=== PATIENT | male | born 1990 | race Two or more races ===

== ENCOUNTER 2022-11-08 14:32 | Emergency (ER) | payer OTHER, SELFPAY ==
[2022-11-08 14:58] VITALS: BP 129/78; PULSE 74; RESP 16; TEMP 36.3; O2SAT 99; BMI 29.8
--- NOTE | 2022-11-08 17:14 | ED.BACK ---
HPI - Back Pain/Injury General Date Seen: 11/08/22 Chief Complaint: Back Injury/Pain Stated Complaint: work comp- pain in hips Time Seen by Provider: 11/08/22 16:17 History of Present Illness HPI Narrative: History is limited by language barrier. An [employer] Turkmen-Persian grievance and appeals coordinator was used to obtain history. This is a pleasant 31-year-old male. He has no long-term medical conditions or previous back problems. He presents to the ER today with a colleague from his work at [employer] on [employer]. He apparently injured his low back or right hip about 5 days ago, last . He was apparently at work when he slipped and twisted. He did not actually fall but it sounds like he slipped and injured his back and hip. He did not report the injury on the day it occurred. It sounds like had fairly significant pain the following day, last Monday and he reported the injury yesterday at work. He has been having pain affecting the lower portion of his right lumbar paraspinous muscle and across the posterior pelvis. He the pain does not really radiate down into his hip or down into his thigh or leg. No associated numbness or tingling or weakness in the leg. He had quite a bit of pain for the 1st day or 2 after the accident but it is getting slowly better. He feels like his legs are a little bit on even now when he walks but he is not having any trouble walking. No bowel or bladder disturbance. No fever. He has no previous back or hip injuries. 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 Related Data Home Medications Medication Instructions Recorded Confirmed No Known Home Medications 11/08/22 11/08/22 Allergies Allergy/AdvReac Type Severity Reaction Status Date / Time No Known Drug Allergies Allergy Verified 11/08/22 15:19 PFSH PFSH Social History Smoking Status: Never smoker How often do you have a drink containing alcohol: monthly or less AUDIT-C Alcohol total score: 1 Non-prescribed substance use: denies use service: No Exam Narrative: Exam Narrative: Constitutional: Appears well-developed and well-nourished. Alert. Conversant using the grievance and appeals coordinator Non toxic. HENT: Head: Atraumatic. Nose: Nose normal. Mouth/Throat: Oral mucosa is clear and moist. no trismus. Pharynx normal. Tonsils symmetric. No tonsillar enlargement, erythema, or exudate. Eyes: Conjunctivae normal. EOM normal. Pupils equal, round, and reactive to light. No scleral icterus. Neck: Normal range of motion. Neck supple. No tracheal deviation present. Cardiovascular: Normal rate, regular rhythm. No gallop. No friction rub. No murmur heard. Symmetric radial artery pulses Pulmonary/Chest: Effort normal. No stridor. No respiratory distress. No wheezes. No rales. No rhonchi . No tenderness. Abdominal: Soft. Bowel sounds normal. No distension. No mass. No tenderness. No rebound. No guarding. Musculoskeletal: RUE: Normal range of motion. No tenderness. No deformity LUE: Normal range of motion. No tenderness. No deformity RLE: Normal range of motion. No edema. No tenderness. No deformity LLE: Normal range of motion. No edema. No tenderness. No deformity Inspection of low back is normal. He endorses pain in the lower right lumbar paraspinous muscles and down toward the right SI joint. He does not have any tenderness there. No midline step-off. No redness. No rash or shingles. No bruising. Pelvis is stable. Right hip, greater trochanter is normal. Normal range of motion of the right hip. No leg length discrepancy. He is able to ambulate normally without any footdrop or antalgic gait. Neurological: Alert and oriented to person, place, and time. Normal strength. CN II-VII intact. No sensory deficit. GCS eye subscore is 4. GCS verbal subscore is 5. GCS motor subscore is 6. Normal coordination Sensory: Normal light touch sensation bilaterally on the anteromedial thigh (L3), medial malleolus (L4), dorsal first web space (L5), lateral malleolus (S1). Strength: 5/5 strength hip flexors (L3) on the right and left 5/5 strength in the quadriceps (L4) on the right and left 5/5 strength in the tibialis anterior 5/5 strength in the EHL (L5) on the right and left 5/5 strength in the gastrocnemius (S1) on the right and left 5/5 strength in the hamstring on the right and left DTRs: symmetric in the patella (2/4) Negative straight leg raise bilaterally. Skin: Skin is warm and dry. No rash noted. No pallor. Normal capillary refill. Psychiatric: Normal mood. Normal affect. Const: Vital Signs, click to edit/add: Vital Signs - 24 hr 11/08/22 14:58 Temperature 97.3 F L Pulse Rate [Right Pulse Oximeter] 74 Respiratory Rate 16 Blood Pressure [Ri ght Upper Arm] 129/78 Pulse Oximetry 99 Oxygen Delivery Me thod Room Air Course Vital Signs Vital signs: Initial Vital Signs Temperature 97.3 F L 11/08/22 14:58 Temperature Source Temporal Artery Scan 11/08/22 14:58 Pulse Rate 74 11/08/22 14:58 Pulse Rhythm Regular 11/08/22 14:58 Respiratory Rate 16 11/08/22 14:58 Blood Pressure 129/78 11/08/22 14:58 Blood Pressure Mean 95 11/08/22 14:58 Blood Pressure Position Sitting 11/08/22 14:58 Pulse Oximetry 99 11/08/22 14:58 Oxygen Delivery Method Room Air 11/08/22 14:58 Vital Signs Temperature 97.3 F L 11/08/22 14:58 Pulse Rate 74 11/08/22 14:58 Respiratory Rate 16 11/08/22 14:58 Blood Pressure 129/78 11/08/22 14:58 Pulse Oximetry 99 11/08/22 14:58 Oxygen Delivery Method Room Air 11/08/22 14:58 Temperature 97.3 F L 11/08/22 14:58 Pulse Rate 74 11/08/22 14:58 Respiratory Rate 16 11/08/22 14:58 Blood Pressure 129/78 11/08/22 14:58 Pulse Oximetry 99 11/08/22 14:58 Oxygen Delivery Method Room Air 11/08/22 14:58 MDM - Back Pain/Injury MDM Narrative Medical decision making narrative: This patient presented with back pain. This is a work related injury that occurred last . Broad differential considered. The patient did not sustain any blunt trauma, therefore x-rays are not necessary due to the low likelihood of fracture or subluxation. No red flag symptoms to suggest CT and/or MRI is indicated at this point. The patient has not had a fever, saddle/perineal anesthesia, bilateral foot numbness, or bowel or bladder dysfunction. There is no clinical evidence of cauda equina syndrome, discitis, spinal/epidural space hematoma or epidural abscess. The neurological exam is normal and the patient's symptoms seem consistent with a musculoskeletal issues and significant muscle spasm. Pain has improved with interventions prior to arrival.. The patient will be discharged with pain medications (Aleve or other NSAIDs) to use as directed. Ice or heat to the back and stretching exercises. No heavy lifting, bending or twisting. Return if increasing pain, numbness, weakness, or bowel or bladder dysfunction. The patient was advised to schedule follow-up with their primary doctor within 2-3 days to re-assess symptoms. Return precautions reviewed and questions answered. Discharge Plan Discharge Clinical Impression: Strain of lumbar region Patient Disposition: Home, Self-Care Condition: Stable Instructions: Back Pain (ED), Lower Back Exercises (ED) Additional Instructions: Please come back to the ER or see your doctor right away if you have worsening pain, numbness or weakness down her leg, or if your symptoms are not resolved after 3 days. Use Aleve as needed to help decrease your pain for the next 2-3 days. Stick to ?light duty as per your employer's instruction sheet. Activity Level: Light activity Diet Detail: urdu Prescriptions: No Action No Known Home Medications Stand Alone Forms: [facility] Info Instructions
== END 2022-11-08 17:31 | disposition home or self-care (01) ==
LOC: ED 17:29
PROVIDERS: Emergency Provider Emergency Medicine
DX: S39.012A Strain of muscle, fascia and tendon of lower back, initial encounter (principal); X58.XXXA Exposure to other specified factors, initial encounter; Y99.0 Civilian activity done for income or pay
CPT/HCPCS: 99282; 99283

== ENCOUNTER 2023-03-21 17:33 | Outpatient (CLI) | payer OTHER, SELFPAY ==
[2023-03-22 00:23] LABS: Chlamydia DNA Amplified* NOT DETECTED (No Detected); GC DNA Amplified* NOT DETECTED (No Detected)
== END 2023-03-21 17:34 | disposition home or self-care (01) ==
PROVIDERS: Visit Provider Nurse Practitioner
DX: R30.9 Painful micturition, unspecified (principal)
CPT/HCPCS: 87086; 87491; 87591

== ENCOUNTER 2023-03-28 10:40 | Emergency (ER) | payer OTHER, SELFPAY ==
[2023-03-28 11:08] VITALS: BP 136/84; PULSE 86; RESP 18; TEMP 37; O2SAT 99; BMI 25.5
--- NOTE | 2023-03-28 11:36 | ED.GENADULT ---
HPI - General Adult General Chief complaint: Back Injury/Pain Stated complaint: Back pain, dizziness Time Seen by Provider: 03/28/23 11:24 History of Present Illness HPI narrative: This 32-year-old male comes in reporting low back pain and flank pain. He states that he has a history of kidney stone about a year ago. 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 He does not describe any particular injury event but does have pain with doing his regular activities of work. Symptoms started about 9 days ago. He does report some pain also with voiding urine and has had some nausea. He reports pain in the left flank but also across his lower back. He does not have any pain radiating down into either leg. Related Data Previous Rx's Medication Instructions Recorded tamsulosin 0.4 mg capsule 0.4 mg PO QDAY 14 days #14 caps 03/21/23 ketorolac 10 mg tablet 10 mg PO Q8H 5 days #15 tabs 03/28/23 ondansetron HCl 4 mg tablet 4 mg PO Q6H #20 tabs 03/28/23 Allergies Allergy/AdvReac Type Severity Reaction Status Date / Time No Known Drug Allergies Allergy Verified 03/28/23 11:19 Review of Systems Status of ROS: Reports: 10 or more systems reviewed and unremarkable except as noted in History and below Narrative: Constitutional: No fevers, no weight gain or loss. Eyes: No discharge. No vision changes. HENT: No congestion, no sore throat, no ear pain. Cardiovascular: No chest pain, no palpitations. Respiratory: No shortness of breath, no wheezes, no cough. Gastrointestinal: Lower abdominal pain, no vomiting, no diarrhea. He reports some nausea symptoms. Genitourinary: Pain when voiding urine. Musculoskeletal: Normal range of motion. Low back pain as described above. Skin: No rashes, no pruritis. Neurological: No dizziness, weakness, sensory change, speech change. Endo/Heme/Allergies: No bruising or bleeding. No polydipsia. Pysch: no suicidality, no anxiety, no insomnia. All other systems reviewed and are negative. PFSH PFS Social History Smoking Status: Former smoker Do you use any of these nicotine containing products: None Second hand tobacco smoke exposure: No How often do you have a drink containing alcohol: never AUDIT-C Alcohol total score: 0 Non-prescribed substance use: denies use service: No Exam Narrative: Exam Narrative: Constitutional: Well-developed, well-nourished, no acute distress. HEENT: Normocephalic, atraumatic. Neck: Normal range of motion. Nontender. Supple. Heart: Regular. No murmurs. Normal rate. Intact distal pulses. Lungs: Clear to auscultation. No chest discomfort. No wheezes, rhonchi, or rales. Abdomen: Normal bowel sounds. Nontender. No rebound tenderness. Genitalia: Deferred. Back: No midline tenderness. Normal range of motion. Extremities: Normal range of motion. No injury. Skin: Intact. No rash. Warm. No erythema or pallor. Neurologic: No altered sensation. No weakness. Alert and oriented. Psychiatric: No suicidality. No anxiety or depression. No insomnia. Nursing notes and vitals signs are reviewed. Const: Vital Signs, click to edit/add: Vital Signs - 24 hr 03/28/23 11:08 Temperature 98.6 F Pulse Rate [Pulse Oximeter] 86 Respiratory Rate 18 Blood Pressure [Ri ght Upper Arm] 136/84 Pulse Oximetry 99 Oxygen Delivery Me thod Room Air Course Vital Signs Vital signs: Initial Vital Signs Temperature 98.6 F 03/28/23 11:08 Temperature Source Temporal Artery Scan 03/28/23 11:08 Pulse Rate 86 03/28/23 11:08 Respiratory Rate 18 03/28/23 11:08 Blood Pressure 136/84 03/28/23 11:08 Blood Pressure Mean 101 03/28/23 11:08 Blood Pressure Position Sitting 03/28/23 11:08 Pulse Oximetry 99 03/28/23 11:08 Oxygen Delivery Method Room Air 03/28/23 11:08 Vital Signs Temperature 98.6 F 03/28/23 11:08 Pulse Rate 86 03/28/23 11:08 Respiratory Rate 18 03/28/23 11:08 Blood Pressure 136/84 03/28/23 11:08 Pulse Oximetry 99 03/28/23 11:08 Oxygen Delivery Method Room Air 03/28/23 11:08 Temperature 98.6 F 03/28/23 11:08 Pulse Rate 86 03/28/23 11:08 Respiratory Rate 18 03/28/23 11:08 Blood Pressure 136/84 03/28/23 11:08 Pulse Oximetry 99 03/28/23 11:08 Oxygen Delivery Method Room Air 03/28/23 11:08 Medical Decision Making MDM Narrative Medical decision making narrative: This 32-year-old male comes in with low back pain and flank pain. He has a history of kidney stones but also states that he is doing heavy lifting at work. He is concerned about workman's compensation to cover expenses for this visit. He does report some dysuria symptoms. I did recommend CT imaging but the patient declined this seeing that workman's compensation may not cover this expense. A urinalysis is obtained and does show evidence of microscopic hematuria but no sign of infection. The patient's symptoms are suspicious for kidney stone as he has flank pain and nausea with symptoms similar to his previous kidney stone about a year ago. He also likely has musculoskeletal pain as he does heavy lifting at work. The patient declined any further studies. He received prescription for Toradol and Zofran. I also provided a return to work note. Lab Data Labs: Lab Results 03/28/23 Range/Units 11:35 Urine Color Yellow (Yellow) Urine Appearance Slightly Cloudy A (Clear) Urine pH 5.5 (5.0-8.5) Ur Specific [place] >= 1.030 (1.000-1.030) Urine Protein 2+ A (Negative) Urine Glucose (UA) Negative (Negative) Urine Ketones Trace A (Negative) Urine Blood 3+ A (Negative) Urine Nitrite Negative (Negative) Urine Bilirubin Negative (Negative) Urine Urobilinogen 0.2 (0.2-1.0) Ur Leukocyte Esterase Negative (Negative) Urine RBC 25-50 A (0-2) Urine WBC 0-2 (0-5) Ur Squamous Epith Cells None (None-Few) Amorphous Sediment Few A (None) Urine Bacteria None (None) Discharge Plan Discharge Clinical Impression: Strain of lumbar region, Hematuria Patient Disposition: Home, Self-Care Condition: Stable Additional Instructions: Take medication as prescribed. Follow up with MD or return if worsening. Follow-up with primary physician to recheck urine. Prescriptions: New ondansetron HCl 4 mg tablet 4 mg PO Q6H Qty: 20 0RF ketorolac 10 mg tablet 10 mg PO Q8H 5 Days Qty: 15 0RF No Action tamsulosin 0.4 mg capsule 0.4 mg PO QDAY 14 Days Qty: 14 0RF Follow Up/Referrals: Provider,Not a Local [Primary Care Provider] - Stand Alone Forms: [employer] Info Instructions
[2023-03-28 12:33] LABS: Appearance Urine Slightly Cloudy (Clear); Bilirubin Urine Negative (Negative); Blood Urine 3+ (Negative); Color Urine Yellow (Yellow); Glucose Urine Negative (Negative); Ketones Urine Trace (Negative); Leukocyte Esterase Urine Negative (Negative); Nitrite Urine Negative (Negative); Protein Urine 2+ (Negative); Specific Gravity Urine >= 1.030 (1.000-1.030); Urobilinogen Urine 0.2 (0.2-1.0); pH Urine 5.5 (5.0-8.5)
[2023-03-28 12:47] LABS: Amorphous Sediment Urine Few; RBC Urine 25-50 (0-2); WBC Urine 0-2 (0-5)
--- NOTE | 2023-03-28 13:25 | ED.NURSE ---
Patient discharged home with self. Discharge instructions reviewed and understood by patient with field operations technician present. All questions answered. Left via ambulatory.
== END 2023-03-28 13:25 | disposition home or self-care (01) ==
PROVIDERS: Emergency Provider Emergency Medicine Emergency Medical Services
DX: S39.012A Strain of muscle, fascia and tendon of lower back, initial encounter (principal); X50.0XXA Overexertion from strenuous movement or load, initial encounter; Y92.79 Other farm location as the place of occurrence of the external cause; Y99.0 Civilian activity done for income or pay; R31.9 Hematuria, unspecified
CPT/HCPCS: 81001; 99284

== ENCOUNTER 2024-01-15 15:43 | Outpatient (CLI) | payer OTHER, SELFPAY ==
--- OUTSIDE RECORDS SUMMARY | 2024-01-15 15:48 | XMS_ITS | Continuity of Care Document ---
Author Organization [facility] Address [address] [place] [address] Assessment No assessment recorded. Plan of Treatment Reminders Order Date Submit Date Provider Last Modified By Organization Details Last Modified Time Details Appointments Establish ed patient 2023 03:20P M Kenya Ayoub MD Not available Not available Not available Establish ed patient 20 2023 04:20P M Kenya Ayoub MD Not available Not available Not available Lab None recorded. Referral None recorded. Procedures None recorded. Surgeries None recorded. Imaging CT, urogram 2023 024 [email or web address] Not available 01/11/2024 16:13:23 Medication Orders None recorded. Patient TargetsNo targets recorded. Patient InstructionsNo instructions recorded. Reason for Referral None Reported. Problems Name Problem SNOMED Code Status Onset Date Resolution Date Notes Provider Name and Address Organization Details Recorded Time Persisten t microscop ic hematuria 985974346 Active 2023 Urgent care 03/21/2023, ER 03/28/2023 CT scan 04/14/2023 - negative for renal calculus, bladder/pr ostate normal Evaluation in [place] 2022 - kidney stones DEVANTE DIETZ MD [address] [facility] [place], [address], [facility] [employer] 4 20:54:22 Dysuria 04111024 Active 2023 Urine cultures negative - improved with 3 week course of Bactrim in 07/2023 for ? chronic prostatiti s DEVANTE DIETZ MD [address] [facility] [place], [address], [employer] 4 21:01:30 Problem Notes None recorded. Medical Equipment None Reported. Medications Name Sig Start Date Stop Date Status Note LastModified by Organization Details LastModified Time methocarbam ol 500 mg tablet TAKE TWO TABLETS BY MOUTH AT BEDTIME FOR 2 WEEKS active Not Available Not Available No t Available ondansetron HCl 4 mg tablet TAKE ONE TABLET BY MOUTH EVERY SIX HOURS 07/30 completed Not Available Not Available Not Available naproxen 250 mg tablet TAKE TWO TABLETS BY MOUTH EVERY 12 HOURS FOR THE NEXT 5 DAYS. AFTER THAT, TAKE ONE TABLET BY MOUTH EVERY 12 HOURS NEEDED. active Not Available Not Available No t Available sulfamethox azole 800 mg-trimetho prim 160 mg tablet TAKE 1 TABLET EVERY 12 HOURS BY ORAL ROUTE FOR 21 DAYS. 12/18 completed Not Available Not Available Not Available ketorolac 10 mg tablet TAKE ONE TABLET BY MOUTH EVERY EIGHT HOURS FOR 5 DAYS 07/30 completed Not Available Not Available Not Available amoxicillin 875 mg tablet TAKE ONE TABLET BY MOUTH EVERY 12 HOURS FOR 7 DAYS 07/30 completed Not Available Not Available Not Available tamsulosin 0.4 mg capsule TAKE ONE CAPSULE BY EVERY DAY FOR 14 DAYS 07/30 completed Not Available Not Available Not Available levofloxaci n 500 mg tablet TAKE ONE TABLET BY MOUTH EVERY 24 HOURS FOR 10 DAYS 07/30 completed Not Available Not Available Not Available methylpredn isolone 4 mg tablets in a dose pack TAKE BY MOUTH DIRECTED ON PACKAGE active Not Available Not Available No t Available naproxen 500 mg tablet TAKE ONE TABLET BY MOUTH TWICE A DAY active Not Available Not Available No t Available Vitals Date Recorded Body weight Oxygen saturation Oxygen saturation in Arterial blood by Pulse oximetry Respiratory rate Systolic blood pressure Diastolic blood pressure Provider Name and Address Organization Details Last Updated DateTime 4 30899.7 2 g 100 % 100 % 78 /min 135 mm[Hg] 76 mm[Hg] ROLF Son [address] [place], [address], [place] - [facility] 4 11:57:48 Social History None recorded. Functional Status None recorded. Mental Status None recorded. Family History Nothing Reported. Medical History No medical history recorded. Past Encounters Encounter ID Performer Location Encounter Start Date Encounter Closed Date Diagnosis/Indication Diagnosis SNOMED-CT Code Diagnosis ICD10 Code [id number] [facility] [address] [facility] [place] [address] 01/08/2024 11:27:37 01/08/2024 13:04:20 Persistent microscopic hematuria 527079888 R31.29 Chronic prostatitis 1989 5009 N41.1 Health Concerns Section Related Observation LastModified by Organization Detai ls LastModified Time None Recorded Concern Status LastModified by Organization Details LastModified Time None Recorded Payers Encounter Date Sequence Insurance Name Policy Number Policy Fraga Covered Member ID Fraga Member ID Guarantor Name 01/08/2024 SLIDING FEE SCHEDULE - DISCOUNT Khalif Peters Notes Date Note Type Note Provider Name and Address Organization Details Recorded Time 01/08/2024 text/html HPI Notes: Pt he re today following up on his urinary sxs Pt last seen by me in August -- p tomas see those previous notes for more detailed history At that time was treated for chronic prostatitis with 3 week course of Bactrim per urology recommendation (consulted through [facility]) given persistent urinary sxs (urgency, dysuria). His symptoms improved but stated about 15-20 days ago, they returned. Has persistent dysuria, urgency. Also has occasional left sided low back ache and feels urine is dark in color. Had normal CT scan of abdomen/pelvis as well as normal renal function. Has had persistent microscopic hematuria and proteinuria. Pt was referred to urology specialist ( Dr Kenya Ayoub). However he missed his appointment on 12/27. Given the hematuria and proteinuria, Dr Ayoub recommended CT urogram. If not clear cause identified, he may need cystoscopy . Does have a visit scheduled with Dr. Ayoub for mid January (01/31). ROLF Son [address] [place], [address], [facility] - [facility] 01/08/2024 13:12:28
--- OUTSIDE RECORDS SUMMARY | 2024-01-15 15:48 | XMS_ITS | Data Portability ---
Author Organization [facility] [email or web address] [facility] DOMITILAISAIAH OFFICE Address [address] [place] [address] [place] [phone] Assessment Encounter Date Assessment Date Assessment LastModified by Organization Details LastModified Time 04/14/2023 04/14/2023 - full complement of labs to evaluate symptoms (possibly DM2) - CT of abdomen given history of stones and persistent symptoms - plan pending results [email or web address] Not available 04/14/2023 13:34:10 Plan of Treatment Reminders Order Date Submit Date Provider Last Modified By Organization Details Last Modified Time Details Appointments Establish ed patient 20 2023 03:20P M Kenya Ayoub MD Not available Not available Not available Establish ed patient 20 2023 04:20P M Kenya Ayoub MD Not available Not available Not available Lab H pylori Ag, stool 2023 024 JOSE Not available 05/09/2023 21:39:47 CMP, serum or plasma 2023 024 JOSE Not available 05/09/2023 21:39:47 CBC w/ auto diff 2023 024 JOSE Not available 05/09/2023 21:39:47 TSH, serum or plasma 2023 024 JOSE Not available 05/09/2023 21:44:38 HbA1c (hemoglob in A1c), blood 2023 024 JOSE Not available 05/08/2023 11:54:32 CMP, serum or plasma 2023 024 JOSE Not available 08/01/2023 14:14:47 PSA, total, serum or plasma 2023 024 JOSE Not available 08/02/2023 11:52:37 urinalysi s, complete 2023 JOSE Not available 08/02/2023 11:49:08 culture, urine 2023 024 JOSE Not available 08/02/2023 11:13:28 Referral None recorded. Procedures None recorded. Surgeries None recorded. Imaging CT, abdomen + pelvis, w/o contrast 2023 024 JOSE Not available 05/09/2023 21:45:51 CT, urogram 2023 [email or web address] Not available 01/11/2024 16:13:23 Medication Orders naproxen 500 mg tablet [address], [address], 08/21/2023 13:12:14 Patient TargetsNo targets recorded. Patient InstructionsNo instructions recorded. Reason for Referral None Reported. Results Created Date Observation Date Name Description Value Unit Range Abnormal Flag Note LastModifiedBy Organization Detail LastModifiedTime 04/14/19 24 04/14/2023 TSH, serum or plasm a TSH 0.958 Not Available Not Availa ble 05/09/2023 21:43:15 04/14/19 24 04/14/2023 H pylor i Ag, stool hemoglobin A1C 5.3 Not Available Not Available 04/21 21:39:47 04/14/19 24 04/14/2023 H pylor i Ag, stool creatinine 0.9 Not Available Not Velia ilable 05/09/2023 21:39:47 04/14/19 24 04/14/2023 H pylor i Ag, stool ALT 26 Not Available Not Availa ble 05/09/2023 21:39:47 04/14/19 24 04/14/2023 H pylor i Ag, stool WBC 6.97 Not Available Not Availa ble 05/09/2023 21:39:47 04/14/19 24 04/14/2023 H pylor i Ag, stool HGB 14.0 Not Available Not Availa ble 05/09/2023 21:39:47 04/14/19 24 04/14/2023 H pylor i Ag, stool plt 414 Not Available Not Availa ble 05/09/2023 21:39:47 04/14/19 24 04/14/2023 CBC w/ auto diff hemoglobin A1C 5.3 Not Available Not Available 04/21 21:39:47 04/14/19 24 04/14/2023 CBC w/ auto diff creatinine 0.9 Not Available Not Velia ilable 05/09/2023 21:39:47 04/14/19 24 04/14/2023 CBC w/ auto diff ALT 26 Not Available Not Availa ble 05/09/2023 21:39:47 04/14/19 24 04/14/2023 CBC w/ auto diff WBC 6.97 Not Available Not Availa ble 05/09/2023 21:39:47 04/14/19 24 04/14/2023 CBC w/ auto diff HGB 14.0 Not Available Not Availa ble 05/09/2023 21:39:47 04/14/19 24 04/14/2023 CBC w/ auto diff plt 414 Not Available Not Availa ble 05/09/2023 21:39:47 04/14/19 24 04/14/2023 CMP, serum or plasm a hemoglobin A1C 5.3 Not Available Not Available 04/21 21:39:47 04/14/19 24 04/14/2023 CMP, serum or plasm a creatinine 0.9 Not Available Not Velia ilable 05/09/2023 21:39:47 04/14/19 24 04/14/2023 CMP, serum or plasm a ALT 26 Not Available Not Availa ble 05/09/2023 21:39:47 04/14/19 24 04/14/2023 CMP, serum or plasm a WBC 6.97 Not Available Not Availa ble 05/09/2023 21:39:47 04/14/19 24 04/14/2023 CMP, serum or plasm a HGB 14.0 Not Available Not Availa ble 05/09/2023 21:39:47 04/14/19 24 04/14/2023 CMP, serum or plasm a plt 414 Not Available Not Availa ble 05/09/2023 21:39:47 04/14/19 24 04/14/2023 HbA1c (hemo globi n A1c), blood hemoglobin A1C 5.3 Not Available Not Available 03/21 14:04:35 04/14/19 24 04/14/2023 HbA1c (hemo globi n A1c), blood creatinine 0.9 Not Available Not Velia ilable 04/14/2023 14:04:35 04/14/19 24 04/14/2023 HbA1c (hemo globi n A1c), blood ALT 26 Not Available Not Availa ble 04/14/2023 14:04:35 04/14/19 24 04/14/2023 HbA1c (hemo globi n A1c), blood WBC 6.97 Not Available Not Availa ble 04/14/2023 14:04:35 04/14/19 24 04/14/2023 HbA1c (hemo globi n A1c), blood HGB 14.0 Not Available Not Availa ble 04/14/2023 14:04:35 04/14/19 24 04/14/2023 HbA1c (hemo globi n A1c), blood plt 414 Not Available Not Availa ble 04/14/2023 14:04:35 08/01/19 24 08/01/2023 CMP, serum or plasm a creatinine 1.2 Not Available Not Velia ilable 08/01/2023 14:11:46 08/01/19 24 08/01/2023 CMP, serum or plasm a ALT 37 Not Available Not Availa ble 08/01/2023 14:11:46 08/01/19 24 08/01/2023 PSA, total , serum or plasm a creatinine 1.2 Not Available Not Velia ilable 08/02/2023 11:52:37 08/01/19 24 08/01/2023 PSA, total , serum or plasm a ALT 37 Not Available Not Availa ble 08/02/2023 11:52:37 12/27/19 24 12/27/2023 CMP, serum or plasm a creatinine Not Available Not Velia ilable 12/30/2023 11:06:49 05/09/19 24 04/14/2023 CT, abdom en + pelvi s, w/o contr ast No observ ation record ed. [email or web address] Not Available 2023 15:31:24 Result Notes None recorded. Problems Name Problem SNOMED Code Status Onset Date Resolution Date Notes Provider Name and Address Organization Details Recorded Time Persisten t microscop ic hematuria 278134830 Active 2023 Urgent care 03/21/2023, ER 03/28/2023 CT scan 04/14/2023 - negative for renal calculus, bladder/pr ostate normal Evaluation in [place] 2022 - kidney stones DEVANTE DIETZ MD [address] [place], [address], [facility] [employer] 20:54:22 Dysuria 45975717 Active 2023 Urine cultures negative - improved with 3 week course of Bactrim in 07/2023 for ? chronic prostatiti s DEVANTE DIETZ MD [address] [place], [address], [facility] [employer] 21:01:30 Problem Notes None recorded. Procedures Surgical History None recorded. Imaging Results Imaging Date Name Status LastModified by Organiz ation Details LastModified Time 04/14/2023 CT, abdomen + pelvis, w/o contrast completed [email or web address] Information not available 06/01/2023 15:31:24 Procedure Notes None recorded. Medical Equipment None Reported. [...] No t Available Vitals Date Recorded Body height Body mass index (BMI) Body weight Respiratory rate Body temperature Oxygen saturation Oxygen saturation in Arterial blood by Pulse oximetry Heart rate Systolic blood pressure Diastolic blood pressure Provider Name and Address Organization Details Last Updated DateTime 4 167.64 cm 27.8 kg/m2 43880.6 1 g 22 /min 97.2 [degF] 99 % 99 % 73 /min 128 mm[Hg] 78 mm[Hg] Henrietta Ham [facility] [employer] 4 10:40:57 Date Recorded Body weight Oxygen saturation Oxygen saturation in Arterial blood by Pulse oximetry Heart rate Systolic blood pressure Diastolic blood pressure Provider Name and Address Organization Details Last Updated DateTime 4 28354.7 6 g 99 % 99 % 71 /min 132 mm[Hg] 83 mm[Hg] ROLF Son [address] [place], [address], [facility] [employer] 16:17:07 Date Recorded Body weight Body mass index (BMI) Body height Oxygen saturation Oxygen saturation in Arterial blood by Pulse oximetry Heart rate Systolic blood pressure Diastolic blood pressure Provider Name and Address Organization Details Last Updated DateTime 4 14463.0 2 g 28.3 kg/m2 167.64 cm 98 % 98 % 80 /min 132 mm[Hg] 65 mm[Hg] ROLF Son [address] [place], [address], [facility] [employer] 11:28:32 Date Recorded Body weight Oxygen saturation Oxygen saturation in Arterial blood by Pulse oximetry Respiratory rate Systolic blood pressure Diastolic blood pressure Provider Name and Address Organization Details Last Updated DateTime 84497.7 2 g 100 % 100 % 78 /min 135 mm[Hg] 76 mm[Hg] ROLF Son [address] [place], [address], [place] [email or web address] 11:57:48 Social History None recorded. Functional Status None recorded. Mental Status None recorded. Family History Nothing Reported. Medical History No medical history recorded. Past Encounters Encounter ID Performer Location Encounter Start Date Encounter Closed Date Diagnosis/Indication Diagnosis SNOMED-CT Code Diagnosis ICD10 Code [id number] BRIANACHELSEY RAMIRES [facility] [place] [facility] [address] [place] [address] 04/14/2023 10:33:49 04/14/2023 11:10:22 Dizziness 126574285 R42 Headache 94994290 R51.9 Polyuria 36938722 R35.89 History of calculus of kidney 107716342 Z87.442 Nausea 101222628 R11.0 [id number] ROLF Son OFFICE [address] [place] [address] 07/31/2023 15:34:34 07/31/2023 16:48:54 Pain in testicle 45897110 N50.819 Dribbling of urine 26366 000 N39.43 Dysuria 11269931 R30.0 Microscopic hematuria 19 7277957 R31.29 [id number] ROLF Son OFF[facility] [address] [place] [address] 08/21/2023 11:04:32 08/21/2023 11:55:52 Headache 16115692 R51.9 Paresthesi a of lower extremity 671260125 R20.2 Pain in testicle 5464173 9 N50.819 Dysuria 21287076 R30.0 Microscopic hematuria 19 3424806 R31.29 [id number] ROLF Son OFFICE [address] [place] [address] 01/08/2024 11:27:37 01/08/2024 13:04:20 Persistent microscopic hematuria 362965755 R31.29 Chronic prostatitis 1989 5009 N41.1 Health Concerns Section Related Observation LastModified by Organization Detai ls LastModified Time None Recorded Concern Status LastModified by Organization Details LastModified Time None Recorded Advance Directives Directive None Recorded Payers Encounter Date Sequence Insurance Name Policy Number Policy Fraga Covered Member ID Fraga Member ID Guarantor Name 04/14/2023 SLIDING FEE SCHEDULE - DISCOUNT Khalif Peters 07/31/2023 SLIDING FEE SCHEDULE - DISCOUNT Khalif Peters 08/21/2023 SLIDING FEE SCHEDULE - DISCOUNT Khalif Peters 01/08/2024 SLIDING FEE SCHEDULE - DISCOUNT Khalif Peters Notes Date Note Type Note Provider Name and Address Organization Details Recorded Time 04/14/2023 text/html HPI Notes: Marvin goldberg is a new patient to the clinic; has not been feeling well for a few weeks. Starting around March 20, he started having dizziness (during the entire day, no alleviating or aggravating factors), intermittent L sided headache. + nausea in the morning. Seen in UC on 03/21/23 with BG of 129, rest of BMP wnl. Negative GC/Chlamydia, + hematuria. Seen in ED on 03/28 with similar flank pain symptoms, persistent hematuria and declined imaging at that visit. He was started on Flomax given history, still taking this. Notes chronic back back in thoracic region, primarily L sided. He was seen in [place] for symtpoms about 6 months ago and found to have kidney stones. Rest of labs reassuring at that time. and baby still in [place]. Patient is generally healthy, no surgeries. Only current medication is Flomax. + HTN and DM2 in family. BRIANA RAMIRES, [facility] [address] [place], [address], [facility] 05/30/2023 17:31:09 07/31/2023 text/html HPI Notes: Patie nt here today for evaluation of urinary and testicular sxs Pt seen here in March c a range of sxs; had normal CT of abdomen (this was ordered given + hx of renal stones). Other labwork ordered was also WNL Was ultiamtely treated for atypical sinusitis c Amoxicillin Subsequently treated with levofloxacin for dysuria (10 days) Sxs did not resolve Says travelled to . Was seen by urologist there. Treated with cocktail of meds including tamsulosin, ciprofloxacin, omeprazole Etoricoxib, ami First visit with this provider. Seen in March and sent for CT of abdomen in particular to evaluate for stones. Went to was having sxs given a cocktail of meds including tamsulosin, ciprofloxacin, omeprazole Etoricoxib, and amikacin. Reports this did not change his sxs He continues to have sxs that concerns him -- endorses pain in inguinal area and testicles. Also reports dribbling, low back pain , urinary frequency. Says urine is dark. Endorses dysuria that comes and goes. Denies hematuria, penile discharge, nocturia.. No problems with erection, ejaculation. Believes had negative gonorrhea test. Unsure about any testing for chlamydia but also believes this was negative. Denies fever, nausea, vomiting. Has had persistent microscopic hematuria. ROLF Son [address] [place], [address], [facility] 08/01/2023 13:29:21 08/21/2023 text/html HPI Notes: Pt he re today following up on his urinary sxs Please see previous OV note for more details Treated with 3 week course of Bactrim per urology recommendation (consulted through [employer]) Pt reports: improvement in the urinary urgency and dysuria. Says that during [place] is symptom free. However continues to notice occasional dysuria in evenings. Testicular and inguinal pain has resolved Urology referral was initiated: in process, has a meeting with a pediatric critical care nurse today to discuss options. Is feeling stress b/c concerned about kidney function. Explained his labs are not suggestive of renal insufficiency. He does have persistent microscopic blood in his urine as well as 2+ protein but had normal CMP and Ct scan of abd earlier this year. Pt also reporting headache since last visit. States has experienced this since last visit and it is constant. Pain is not severe. Has not taken anything for it. It is felt frontally and behind the left eye. No visual changes but notes occasional pulsations in the vision. Also reports occasional dizziness. Says GUSTAFSON gets worse as day progresses. He hasn't wanted to take anything b/c he was afraid of mixing meds. Has occasional nausea but it is not affiliated with the headache usually. Also reporting occasional paresthesias of the extremities. Comes and goes. Having left sided upper back pain with some arm movements, bending forward. ROLF Son [address] [place], [address], [facility] 08/21/2023 13:54:35 01/08/2024 text/html HPI Notes: Pt he re today following up on his urinary sxs Pt last seen by me in August -- p tomas see those previous notes for more detailed history At that time was treated for chronic prostatitis with 3 week course of Bactrim per urology recommendation (consulted through [employer]) given persistent urinary sxs (urgency, dysuria). [...] for mid January (01/31). ROLF Son [address] [place], [address], [facility] 01/08/2024 13:12:28
--- NOTE | 2024-01-15 16:00 | CRLHL7_ITS ---
For Patients: As a result of the Century Cures Act, medical imaging exams and procedure reports are released immediately into your electronic medical record. You may view this report before your referring provider. If you have questions, please contact your health care provider. INDICATION: Persistent microscopic hematuria for 1 year. Low back pain. Pain with urination. TECHNIQUE: CT of the abdomen and pelvis performed using the urogram protocol. 95 cc nonionic Isovue-370 administered. COMPARISON: Correlation is made with a noncontrast abdominal pelvic CT April 14, 2023. (Reportedly normal without stones). FINDINGS: Precontrast imaging is negative for urinary tract calculi. Calcified left erna pelvic phlebolith. Postcontrast imaging demonstrates normal kidneys, ureters, and urinary bladder. Clear included lung bases with mild respiratory motion artifact. The liver, spleen, pancreas, gallbladder, adrenal glands, abdominal aorta, iliac arteries, inferior vena cava, prostate gland, and seminal vesicles are normal. Normal small and large bowel. Normal appendix. No ascites or lymphadenopathy. Normal included skeleton. IMPRESSION: Negative CT of the abdomen and pelvis. No change other than technique. Please note that all CT scans at this facility use dose modulation, iterative reconstruction, and/or weight-based dosing when appropriate to reduce radiation dose to as low as reasonably achievable. Dictated by Yuan Suárez MD @ 01/16/2024 12:47:34 PM (Electronically Signed)
== END 2024-01-15 15:44 | disposition home or self-care (01) ==
LOC: CT 15:46
PROVIDERS: PCP Family Medicine; Visit Provider Nurse Practitioner Family
DX: R31.29 Other microscopic hematuria (principal); M54.50 Low back pain, unspecified
CPT/HCPCS: 74178; T1013; Q9967

== ENCOUNTER 2024-04-12 16:45 | Outpatient (RCR) | payer OTHER, SELFPAY | END 2024-06-07 10:00 | disposition home or self-care (01) | PROVIDERS: PCP Family Medicine; Visit Provider Registered Nurse | DX: M54.50 Low back pain, unspecified (principal); G89.29 Other chronic pain; M25.652 Stiffness of left hip, not elsewhere classified; M62.89 Other specified disorders of muscle; Z51.89 Encounter for other specified aftercare | CPT/HCPCS: 97110; 97140; 97161; T1013 ==